=== PATIENT | female | born 1990 | race American Indian/Alaskan Native ===

== ENCOUNTER 2019-05-28 04:47 | Emergency (ER) | payer SELFPAY ==
[~2019-05-28] VITALS: Ht 157.5 cm; Wt 129.0 kg
[2019-05-28] MEDS ORDERED: TETANUS, DIPHTHERIA, PERTUSSIS VAC/PF 0.5ML (>7YR OLD) IM ONE (06:15)
[2019-05-28] MEDS ORDERED: LIDOCAINE HCL/PF 1% 10 MG/ML 5ML VIAL IJ ONE (06:15)
[2019-05-28 07:20] VITALS: BP 120/74
== END 2019-05-28 07:42 | disposition home or self-care (01) ==
LOC: ER 04:47
DX: S01.311A Laceration without foreign body of right ear, initial encounter (principal); F17.200 Nicotine dependence, unspecified, uncomplicated; Y08.89XA Assault by other specified means, initial encounter; Y93.89 Activity, other specified; Y92.89 Other specified places as the place of occurrence of the external cause; Y99.8 Other external cause status
CPT/HCPCS: 12013; 90471; 90715; 99283; J3490

== ENCOUNTER 2019-06-09 10:34 | Emergency (ER) | payer SELFPAY ==
[~2019-06-09] VITALS: Ht 157.5 cm; Wt 127.0 kg
[2019-06-09 11:07] VITALS: BP 123/84
== END 2019-06-09 11:38 | disposition home or self-care (01) ==
LOC: ER 10:34
DX: S01.311D Laceration without foreign body of right ear, subsequent encounter (principal); F17.210 Nicotine dependence, cigarettes, uncomplicated; X58.XXXD Exposure to other specified factors, subsequent encounter
CPT/HCPCS: 99281; 99406; Z7610